=== PATIENT | female | born 1980 | race Caucasian/White ===

== ENCOUNTER 2016-11-21 07:46 | Day surgery (SDCO) | payer MEDICARE ==
[2016-11-14 14:11] LABS: HCT 38.7 % (37.0-47.0); HGB 13.5 g/dl (12.5-16.0); MCH 29.1 pg (25.0-31.0); MCHC 34.9 g/dL (32.0-36.0); MCV 83.4 fL (78.0-100.0); MPV 10.8 fL (6.0-9.5); RBC 4.64 M/uL (4.20-5.40); RDW 13.5 % (11.5-14.0); WBC 5.5 K/uL (4.0-10.5)
[~2016-11-21] VITALS: Ht 170.2 cm; Wt 108.6 kg
[2016-11-22 04:47] LABS: BASOPHIL 0.1 % (0-2); EOSINOPHIL 0.3 % (0-5); HCT 33.1 % (37.0-47.0); HGB 11.5 g/dl (12.5-16.0); LYMPHOCYTE 17.4 % (15-48); MCH 29.6 pg (25.0-31.0); MCHC 34.7 g/dL (32.0-36.0); MCV 85.1 fL (78.0-100.0); MONOCYTE 6.8 % (0-12); MPV 11.1 fL (6.0-9.5); NEUTROPHIL 75.4 % (41-80); PLT 189 K/uL (150-400); RBC 3.89 M/uL (4.20-5.40); RDW 13.1 % (11.5-14.0); WBC 7.1 K/uL (4.0-10.5)
[2016-11-22] MEDS ORDERED: PERCOCET 5/3251 TAB PO (10:03)
[2016-11-22] MEDS ORDERED: MOTRIN600 MG PO (10:03)
[2016-11-22] MEDS ORDERED: COLACE100 MG PO (10:03)
[2016-11-22] MEDS ORDERED: ARMOUR THYROID60 MG PO (10:04)
[2016-11-22] MEDS ORDERED: MIRAPEX0.25 MG PO (10:04)
[2016-11-22] MEDS ORDERED: SEROQUEL 100MG100 MG PO (10:04)
== END 2016-11-22 08:49 | disposition home or self-care (01) ==
LOC: FAS 07:46 → EDSTATUS 08:00 → FAS 08:00 → FMS 11:28
PROVIDERS: ADMIT Obstetrics & Gynecology
DX: N72 Inflammatory disease of cervix uteri (principal); N80.0 Endometriosis of uterus; N83.8 Other noninflammatory disorders of ovary, fallopian tube and broad ligament; F31.9 Bipolar disorder, unspecified; F41.9 Anxiety disorder, unspecified; E03.9 Hypothyroidism, unspecified; G47.33 Obstructive sleep apnea (adult) (pediatric); E66.01 Morbid (severe) obesity due to excess calories; Z68.37 Body mass index [BMI] 37.0-37.9, adult; Z98.51 Tubal ligation status; Z98.84 Bariatric surgery status; Z86.711 Personal history of pulmonary embolism; Z87.891 Personal history of nicotine dependence; Z82.3 Family history of stroke; Z83.6 Family history of other diseases of the respiratory system; Z83.3 Family history of diabetes mellitus; Z83.49 Family history of other endocrine, nutritional and metabolic diseases; Z82.49 Family history of ischemic heart disease and other diseases of the circulatory system; Z81.1 Family history of alcohol abuse and dependence; Z80.8 Family history of malignant neoplasm of other organs or systems; Z98.890 Other specified postprocedural states; Z79.899 Other long term (current) drug therapy
CPT/HCPCS: 36415; 84443; 84703; 85025; 86850; 86900; 86901; 93005; 94010; 94760; 94762; G0378; J0690; J1100; J1170; J1885; J2405; J2704; J2710; J3010

== ENCOUNTER → 2020-08-21 | Day surgery (SDC) | payer MEDICARE, OTHER ==
[~2020-08-21] MED LIST: ARMOUR THYROID60 MG PO; CLEOCIN300 MG PO; COLACE100 MG PO; DICLOFENAC SODI75 MG PO; MIRAPEX0.25 MG PO; MOTRIN600 MG PO; NORCO 5-325 TA1 EACH PO; PERCOCET 5/3251 TAB PO; PROTONIX 40MG T40 MG PO; REMERON15 MG PO; SEROQUEL 100MG100 MG PO; SINGULAIR10 MG PO; VRAYLAR1.5 MG PO; ZOLOFT50 MG PO
== END | disposition home or self-care (01) ==
LOC: FAS 06:56
DX: K62.1 Rectal polyp (principal); D50.9 Iron deficiency anemia, unspecified; K64.4 Residual hemorrhoidal skin tags; K21.9 Gastro-esophageal reflux disease without esophagitis; Z90.3 Acquired absence of stomach [part of]; Z80.0 Family history of malignant neoplasm of digestive organs; Z20.822 Contact with and (suspected) exposure to COVID-19; Z98.84 Bariatric surgery status; G47.33 Obstructive sleep apnea (adult) (pediatric); Z87.891 Personal history of nicotine dependence; Z82.49 Family history of ischemic heart disease and other diseases of the circulatory system
CPT/HCPCS: 88305; J2250; J2704; J7120

== ENCOUNTER 2020-12-19 14:29 | Emergency (ER) | payer MEDICARE, OTHER ==
[~2020-12-19 14:29] MED LIST changes: -CLEOCIN300 MG PO; -NORCO 5-325 TA1 EACH PO
[2020-12-19 16:19] LABS: BASOPHIL 0.3 % (0-2); EOSINOPHIL 0.7 % (0-5); HCT 41.3 % (37.0-47.0); HGB 13.1 g/dl (12.5-16.0); LYMPHOCYTE 13.9 % (15-48); MCH 27.2 pg (25.0-31.0); MCHC 31.7 g/dL (32.0-36.0); MCV 85.9 fL (78.0-100.0); MONOCYTE 9.1 % (0-12); MPV 11.3 fL (6.0-9.5); NEUTROPHIL 75.4 % (41-80); NRBC 0; PLT 211 K/uL (150-400); RBC 4.81 M/uL (4.20-5.40); RDW 13.9 % (11.5-14.0); WBC 9.1 K/uL (4.0-10.5)
[2020-12-19 16:38] LABS: BUN/CREAT RATIO (CALC) 15.4 RATIO; CREATININE 0.78 mg/dL (0.51-0.95); POTASSIUM 4.4 mmol/L (3.5-5.1)
[2020-12-19] MEDS ORDERED: CLEOCIN300 MG PO (17:14)
[2020-12-19] MEDS ORDERED: NORCO 5-325 TA1 EACH PO (17:14)
== END 2020-12-19 17:26 | disposition home or self-care (01) ==
LOC: FER 14:29
PROVIDERS: Nurse Practitioner Family
DX: K04.7 Periapical abscess without sinus (principal); K02.9 Dental caries, unspecified
CPT/HCPCS: 36415; 80048; 85025